=== PATIENT | female | born 1970 | race Caucasian/White ===

== ENCOUNTER 2020-07-18 12:06 | Emergency (ER) | payer OTHER, BC, SELFPAY ==
--- NOTE | ~2020-07-18 | XR_ITS ---
XR foot RT min 3V DATE: 07/18/2020 12:44 INDICATION: Fall downstairs. Injury, pain of right foot TECHNIQUE: 4 views COMPARISON: None FINDINGS: Mild lateral and moderate posterior calcaneal enthesopathy. No fracture or dislocation, periosteal reaction or bone destruction. IMPRESSION: Calcaneal enthesopathy Reviewed, dictated and finalized at location A. IMPRESSION: Calcaneal enthesopathy
--- NOTE | ~2020-07-18 | XR_ITS ---
XR ankle RT min 3V DATE: 07/18/2020 12:43 INDICATION: Fall down stairs. Injury, pain TECHNIQUE: 4 views COMPARISON: None FINDINGS: Plantar and posterior calcaneal enthesopathy. No fracture or dislocation of the ankle or disruption of the ankle mortise. No periosteal reaction or bone destruction. IMPRESSION: Plantar and posterior calcaneal enthesopathy Reviewed, dictated and finalized at location A.
[2020-07-18 12:19] VITALS: BP 147/73; PULSE 88; RESP 16; TEMP 36.7; O2SAT 97
--- NOTE | 2020-07-18 12:20 | ED.GENADULT ---
HPI - General Adult General Chief complaint: Extremity Injury, Lower Stated complaint: rt ankle injury Time Seen by Provider: 07/18/20 12:30 Source: patient Mode of arrival: ambulatory Limitations: no limitations History of Present Illness HPI narrative: 49-year-old female patient presents to the [facility] with complaints of right ankle pain. Patient states that she was going down some steps and twisted her ankle. Patient states that she did not fall because she had her friend in front of her which did catch her fall. Denies taking any Tylenol or ibuprofen prior to arrival. Patient states that she has iced it since the injury. Patient states it does hurt to put any weight on the right ankle. Denies any numbness or tingling to the toes. Related Data Home Medications Medication Instructions Recorded Confirmed No Home Medications 07/18/20 07/18/20 Allergies Allergy/AdvReac Type Severity Reaction Status Date / Time morphine Allergy Intermediate STOMACH Verified 10/26/19 08:14 PAINS aluminum hydroxide Allergy Unknown UNKNOWN Verified 10/26/19 08:14 atropine Allergy Unknown GI COCKTAIL Verified 10/26/19 08:14 Barbiturates Allergy Unknown GI COCKTAIL Verified 10/26/19 08:14 hyoscyamine Allergy Unknown GI COCKTAIL Verified 10/26/19 08:14 Sulfa (Sulfonamide Allergy Unknown HIVES, Verified 10/26/19 08:14 Antibiotics) ITCHING ANTICHOLINERGICS,OTHER Allergy Unknown GI COCKTAIL Uncoded 10/26/19 08:14 Review of Systems Review of Systems: Narrative: CONSTITUTIONAL: Denies fever, chills, or sweats. EYES: Denies visual changes, redness, or discharge. ENT: Denies rhinorrhea, congestion, sore throat, or otalgia. CARDIOVASCULAR: Denies chest pain, palpitations, or edema. RESPIRATORY: Denies cough or dyspnea. GASTROINTESTINAL: Denies abdominal pain, nausea, vomiting, or diarrhea. GENITOURINARY: Denies dysuria or hematuria. SKIN: Denies rash or itching. MUSCULOSKELETAL: Denies back pain, joint pain, or myalgia. Positive right ankle pain from fall NEUROLOGIC: Denies headache, numbness, or weakness. PSYCHIATRIC: Denies anxiety or depression. [facility] Past Medical History Medical History (Updated 07/18/20 @ 12:59 by BIBI Peterson) Anxiety Arthritis Chronic back pain Crohn's disease Degenerative disc disease Depression Diverticulosis Fatty liver Fibroids Frequent headaches GERD (gastroesophageal reflux disease) Gout Irritable bowel Melena Panic disorder Sleep apnea Ulcer Umbilical hernia Surgical History Surgical History H/O cystoscopy H/O lithotripsy H/O rectocele repair H/O tubal ligation Hx of cholecystectomy Family History Family History Sibling Malignant neoplasm of bone Spina bifida Asthma Mother COPD (chronic obstructive pulmonary disease) Hypertension Father Hepatic cirrhosis Social History Social History Smoking status: Never smoker Alcohol intake: current Substance use: never Gender identity (if verbalized by the patient): Female Comments At the time of my signature I agree with nursing past medical history, surgical, social, and family history. There is no relevant family history pertinent to the presenting complaint. Exam Narrative: Exam Narrative: GENERAL: Well-appearing, well-nourished, and in no acute distress. HEAD: Normocephalic, atraumatic. EYES: PERRLA and EOMI. ENT: Nares clear, no rhinorrhea or epistaxis. Mucous membranes moist. NECK: Supple. No lymphadenopathy CHEST: Clear to auscultation. No respiratory distress. HEART: Regular rate and rhythm. No murmur heard. Normal peripheral pulses. ABDOMEN: Soft, nontender, nondistended, normal active bowel sounds. EXTREMITIES: Patient is unable to bear weight and ambulate without pain the right ankle. The R ankle is without obvious asymmetry or deformity
== END 2020-07-18 13:09 | disposition home or self-care (01) ==
PROVIDERS: Emergency Provider Nurse Practitioner Family; PCP Nurse Practitioner Family
DX: S93.401A Sprain of unspecified ligament of right ankle, initial encounter (principal); X50.9XXA Other and unspecified overexertion or strenuous movements or postures, initial encounter; M19.90 Unspecified osteoarthritis, unspecified site; K50.90 Crohn's disease, unspecified, without complications; K76.0 Fatty (change of) liver, not elsewhere classified; K21.9 Gastro-esophageal reflux disease without esophagitis; M10.9 Gout, unspecified
CPT/HCPCS: 73610; 73630; 99213; G0463

== ENCOUNTER 2020-09-11 09:33 | Emergency (ER) | payer BC, SELFPAY ==
[2020-09-11] VITALS (19 sets, daily range): BP systolic 113–157; BP diastolic 56–90; PULSE 82–110; RESP 12–25; TEMP 36.6; O2SAT 92–99
--- NOTE | ~2020-09-11 | XR_ITS ---
EXAMINATION: XR chest 1V portable EXAM DATE: 09/11/2020 10:17 INDICATION: Persistent productive cough 2-3 months. TECHNIQUE: Portable AP frontal chest x-ray was obtained. Comparison is made to prior examination from 10/26/2019. FINDINGS: The lungs are clear. There are no pleural effusions. The cardiomediastinal silhouette is within normal limits. There is no pneumothorax suspected. The bones and soft tissues are unremarkab le. There are cholecystectomy clips. IMPRESSION: No acute cardiopulmonary findings. Reviewed, dictated and finalized at location A. ETING AMBASSADOR
--- NOTE | ~2020-09-11 | CT_ITS ---
EXAMINATION: CTA chest PE protocol EXAM DATE: 09/11/2020 11:29 INDICATION: Elevated dimer, chest pain, shortness of breath. TECHNIQUE: Spiral CTA of the chest (pulmonary arteries) was performed with 100 cc Omnipaque 350 intr avenous contrast injection. Images were acquired during the pulmonary arterial phase. Coronal maxi mum intensity projection 3D-reconstructions were created by the technologist on dedicated workstation . Axial, coronal and sagittal reformatted images were reviewed. The dose-length product (DLP) for t his examination was 415.30 mGy-cm. The exposure was tailored according to patient size (auto mA exp osure control), and iterative reconstruction (ASIR) was used as additional dose reduction technique. Comparison is made to prior examination from 10/26/2019. FINDINGS: Pulmonary arteries are well opacified and without intraluminal filling defects. No thora cic aortic dissection. The lungs are clear. There are no pleural or pericardial effusions. Trach eobronchial tree is patent. There is no mediastinal, hilar or axillary lymphadenopathy. There is no pneumothorax. Heart normal in size. No evidence of coronary arterial calcification. There is hepatic steatosis. Cholecystectomy clips. There is thoracic spondylosis without osteoblastic or osteo lytic lesions identified. IMPRESSION: 1. No acute findings. 2. Hepatic steatosis. Reviewed, dictated and finalized at location A. ILL PRODUCTION WORKER
--- NOTE | 2020-09-11 10:12 | ECG_ITS ---
Measurements Intervals Keo Rate: 101 P: 17 NH: 159 QRS: -5 QRSD: 81 T: 0 QT: 335 QTc: 435 Interpretive Statements SINUS TACHYCARDIA VOLTAGE CRITERIA FOR LVH BORDERLINE T WAVE ABNORMALITY- INFERIOR LEADS BASELINE ARTIFACT- V1, V5 BORDERLINE ECG Electronically Signed On 09-11-2020 10:28:25 DOUBLE ENDING MACHINE OPERATOR by J Luis Zhu D.O.
--- NOTE | 2020-09-11 10:16 | ED.URI ---
HPI - URI/Sore Throat General Chief Complaint: Upper Respiratory Infection Stated Complaint: Cough, Chest Conjestion Time Seen by Provider: 09/11/20 09:51 Source: patient Mode of arrival: ambulatory Limitations: no limitations History of Present Illness HPI Narrative: This is a 49-year-old female that presents to the emergency department for cough x2 months. Reports has been worsening since onset. Associated with some congestion and rhinorrhea. Recently was evaluated at urgent care for this and had a negative Covid swab. Reports she also recently finished ciprofloxacin for urinary tract infection. Reports substernal chest discomfort which has been constant for the last 3 days. Also reports some shortness of breath. Denies fever or lower extremity edema. Related Data Home Medications Medication Instructions Recorded Confirmed No Home Medications 07/18/20 07/18/20 Allergies Allergy/AdvReac Type Severity Reaction Status Date / Time morphine Allergy Intermediate STOMACH Verified 10/26/19 08:14 PAINS aluminum hydroxide Allergy Unknown UNKNOWN Verified 10/26/19 08:14 atropine Allergy Unknown GI COCKTAIL Verified 10/26/19 08:14 Barbiturates Allergy Unknown Other Verified 09/11/20 10:03 hyoscyamine Allergy Unknown Other Verified 09/11/20 10:03 Sulfa (Sulfonamide Allergy Unknown HIVES, Verified 10/26/19 08:14 Antibiotics) ITCHING ANTICHOLINERGICS,OTHER Allergy Unknown Other Uncoded 09/11/20 10:03 Review of Systems Review of Systems: Narrative: CONSTITUTIONAL: Denies fever ENT: Reports rhinorrhea, congestion CARDIOVASCULAR: Reports chest pain. Denies edema. RESPIRATORY: Reports cough and dyspnea. All systems reviewed & are unremarkable except as noted in HPI and below PMFSH Past Medical History Medical History (Updated 09/11/20 @ 12:35 by Connie Santiago PA-C) Anxiety Arthritis Chronic back pain Crohn's disease Degenerative disc disease Depression Diverticulosis Fatty liver Fibroids Frequent headaches GERD (gastroesophageal reflux disease) Gout Irritable bowel Melena Panic disorder Sleep apnea Ulcer Umbilical hernia Surgical History Surgical History H/O cystoscopy H/O lithotripsy H/O rectocele repair H/O tubal ligation Hx of cholecystectomy Family History Family History Sibling Malignant neoplasm of bone Spina bifida Asthma Mother COPD (chronic obstructive pulmonary disease) Hypertension Father Hepatic cirrhosis Social History Social History Smoking status: Never smoker Alcohol intake: current Substance use: never Gender identity (if verbalized by the patient): Female Exam Narrative: Exam Narrative: GENERAL: Well-appearing, well-nourished, and in no acute distress. HEAD: Normocephalic, atraumatic. EYES: EOMI. ENT: Nares clear, no rhinorrhea or epistaxis. Mucous membranes moist. Oropharynx without tonsillar hypertrophy exudate or other lesions. Bilateral TMs pearly reese non-bulging NECK: Supple. No adenopathy or masses. CHEST: Clear to auscultation. No respiratory distress. No wheezes rales or rhonchi HEART: Regular rate and rhythm. No murmur heard. Normal peripheral pulses. EXTREMITIES: Normal range of motion. No edema. SKIN: Warm, dry, no rash. NEURO: No focal deficits. Alert and oriented x3. PSYCH: Normal mood and affect Course Vital Signs Vital signs: Vital Signs Temperature 98 F 09/11/20 09:55 Pulse Rate 110 H 09/11/20 09:55 Respiratory Rate 20 09/11/20 09:55 Blood Pressure 157/87 H 09/11/20 09:55 Pulse Oximetry 96 09/11/20 09:55 Temperature 98 F 09/11/20 09:55 Pulse Rate 104 H 09/11/20 11:02 Respiratory Rate 20 09/11/20 11:02 Blood Pressure 117/70 09/11/20 11:02 Pulse Oximetry 97 09/11/20 11:02 MDM - URI/Sore Throat MDM Narrative Medical decision
[2020-09-11 10:50] LABS: Basophils Absolute Auto 0.1 K/mm3 (0.0-0.1); Basophils Percent Auto 0.6 % (0.2-1.2); Eosinophils Absolute Auto 0.2 K/mm3 (0-0.3); Eosinophils Percent Auto 1.6 % (0-4.4); Hematocrit 38.9 % (37.0-47.0); Hemoglobin 13.3 g/dL (12.0-15.0); Immature Granulocyte Absolute 0.04 K/mm3 (0.00-0.031); Immature Granulocyte Percent A 0.4 % (0-0.5); Lymphocytes Absolute Auto 3.33 K/mm3 (0.9-3.2); Lymphocytes Percent Auto 30.8 % (18.3-44.2); Mean Corpuscular HGB Conc 34.2 g/dl (32-36); Mean Corpuscular Hemoglobin 31.1 pg (26-34); Mean Corpuscular Volume 90.9 fl (80-100); Mean Platelet Volume 9.1 fl (7.4-10.4); Monocytes Percent Auto 9.6 % (2.6-8.5); Neutrophils Absolute Auto 6.2 K/mm3 (1.3-6.7); Platelet Count Result 347 k/mm3 (150-375); Red Blood Count 4.28 M/mm3 (4.2-5.4); White Blood Count 10.8 K/mm3 (4.5-10.0)
[2020-09-11 10:59] LABS: Partial Thromboplastin Time 26.4 SECONDS (22.3-36.8)
[2020-09-11 11:01] LABS: D Dimer 0.52 ug/mL (<0.48)
[2020-09-11 11:11] LABS: Alanine Aminotransferase 44 U/L (4-35); Albumin Level 3.8 g/dL (3.5-5.1); Alkaline Phosphatase 88 U/L (38-126); Anion Gap 6 mmol/L (8-16); Aspartate Amino Transferase 34 U/L (14-36); Bilirubin,Total 0.4 mg/dL (0.2-1.3); Blood Urea Nitrogen 13 mg/dL (7-17); Calcium 8.9 mg/dL (8.4-10.2); Carbon Dioxide 26 mmol/L (22-30); Chloride 104 mmol/L (98-107); Estimated CRCL calculation 84 ml/min; Estimated Glomerular Filt Rate > 60; Glucose 95 mg/dL (65-105); Lipase 46 U/L (23-300); NT Pro B Type Natriuretic Pept 48 PG/ML (5-100); Potassium 3.6 mmol/L (3.4-5.0); Sodium 136 mmol/L (137-145)
[2020-09-11 11:21] LABS: Troponin I < 0.012 ng/mL (0.000-0.034)
[2020-09-11 23:26] LABS: SARS-CoV-2 RNA PCR Negative
== END 2020-09-11 13:35 | disposition home or self-care (01) ==
PROVIDERS: Physician Assistant; Emergency Provider Emergency Medicine; PCP Nurse Practitioner Family
DX: R05 Cough (principal); Z20.828 Contact with and (suspected) exposure to other viral communicable diseases; F41.9 Anxiety disorder, unspecified; M19.90 Unspecified osteoarthritis, unspecified site; M54.5 Low back pain; G89.29 Other chronic pain; F32.9 Major depressive disorder, single episode, unspecified; K57.90 Diverticulosis of intestine, part unspecified, without perforation or abscess without bleeding; K21.9 Gastro-esophageal reflux disease without esophagitis; G47.30 Sleep apnea, unspecified; R07.9 Chest pain, unspecified
CPT/HCPCS: 36415; 71045; 71275; 80053; 83690; 83880; 84484; 85025; 85380; 85610; 85730; 87635; 93005; 99284; C9803; Q9967; U0003

== ENCOUNTER 2020-12-18 14:49 | Emergency (ER) | payer BC, SELFPAY ==
--- NOTE | ~2020-12-18 | XR_ITS ---
EXAMINATION: XR abdomen/kub 1V EXAM DATE: 12/18/2020 16:02 INDICATION: Right-sided pain, kidney stone. TECHNIQUE: Frontal projection(s) of the abdomen for interpretation. Comparison is made to prior exami nation from 05/26/2019. FINDINGS: Multiple left calyceal stones identified. There is a new linear density projecting over the right L3 transverse process, could be a ureteral stone given the history provided. This measures abo ut 2 x 8 mm. Possible smaller right nephrolithiasis, although both renal contours are obscured by bow el gas. Left pelvic calcifications, phleboliths. Moderate amount of colonic stool and gas. No small b owel dilation. Lung bases unremarkable. There are mild bony degenerative changes. There are cholecyst ectomy clips. IMPRESSION: 1. New linear density could be a proximal ureteral stone given history provided. 2. Bilateral nephrolithiasis. Reviewed, dictated and finalized at location B. CTOR OF LOGISTICS IMPRESSION: 1. New linear density could be a proximal ureteral stone given history provide d. 2. Bilateral nephrolithiasis.
[2020-12-18 14:57] VITALS: BP 164/74; PULSE 87; RESP 18; TEMP 36.4; O2SAT 100
[2020-12-18 15:10] LABS: Basophils Percent Auto 0.3 % (0.2-1.2); Eosinophils Absolute Auto 0.1 K/mm3 (0-0.3); Eosinophils Percent Auto 1.4 % (0-4.4); Hematocrit 40.7 % (37.0-47.0); Hemoglobin 13.6 g/dL (12.0-15.0); Immature Granulocyte Absolute 0.03 K/mm3 (0.00-0.031); Immature Granulocyte Percent A 0.3 % (0-0.5); Lymphocytes Absolute Auto 3.59 K/mm3 (0.9-3.2); Lymphocytes Percent Auto 39.5 % (18.3-44.2); Mean Corpuscular HGB Conc 33.4 g/dl (32-36); Mean Corpuscular Hemoglobin 31.6 pg (26-34); Mean Corpuscular Volume 94.7 fl (80-100); Monocytes Absolute Auto 0.9 K/mm3 (0.1-0.6); Monocytes Percent Auto 9.8 % (2.6-8.5); Neutrophils Absolute Auto 4.4 K/mm3 (1.3-6.7); Neutrophils Percent Auto 48.7 % (45.5-73.1); Platelet Count Result 374 k/mm3 (150-375); Red Cell Distribution Width 12.8 % (11.5-14.5); White Blood Count 9.1 K/mm3 (4.5-10.0)
[2020-12-18 15:13] LABS: Add Urine Microscopic? YES; Appearance Urine Clear (Clear); Bacteria Urine Trace /hpf; Bilirubin Urine Negative (Negative); Blood Urine 2+ (Negative); Color Urine Straw (Yellow); Glucose Urine UA Negative (Negative); Ketones Urine Negative (Negative); Leukocyte Esterase Ur Trace LEU/UL (Negative); Mucus Urine Rare /lpf; Nitrate Urine Negative (Negative); Protein Urine 1+ mg/dL (Negative); RBC Urine 51-75 /hpf (0-2); Specific Grav Ur 1.011 (1.001-1.035); Squamous Epithelial Cell Urine Few /hpf (Few); Transitional Epi Cells Urine Rare /hpf (None Seen); Urobilinogen Urine Negative mg/dL (<2.0); WBC Urine 0-3 /hpf
[2020-12-18 15:22] LABS: Anion Gap 7 mmol/L (8-16); Blood Urea Nitrogen 10 mg/dL (7-17); Calcium 8.6 mg/dL (8.4-10.2); Carbon Dioxide 30 mmol/L (22-30); Chloride 103 mmol/L (98-107); Estimated CRCL calculation 75 ml/min; Estimated Glomerular Filt Rate > 60; Glucose 118 mg/dL (65-105); Potassium 3.5 mmol/L (3.4-5.0); Sodium 140 mmol/L (137-145)
--- NOTE | 2020-12-18 15:25 | ED.ABDPAIN ---
HPI - Abdominal Pain General Chief Complaint: Abdominal Pain Stated Complaint: deedee stone, onel flank pain Time Seen by Provider: 12/18/20 14:54 Source: patient Mode of arrival: ambulatory Limitations: no limitations History of Present Illness HPI narrative: Patient is a 50-year-old female complaining of right flank pain, 5 out of 10, sharp, nonradiating started yesterday. Patient states that she went to an urgent care earlier today, had a CT scan done, was told she had a 7 mm stone and that she needs to go the emergency room. Patient states that she has a history of kidney stones and she sees Dr. Soria, urology. Patient states that she usually passes her stones and does not know why the urgent care told her to come to the emergency room. Related Data Allergies Allergy/AdvReac Type Severity Reaction Status Date / Time morphine Allergy Intermediate STOMACH Verified 10/26/19 08:14 PAINS aluminum hydroxide Allergy Unknown UNKNOWN Verified 10/26/19 08:14 atropine Allergy Unknown GI COCKTAIL Verified 10/26/19 08:14 Barbiturates Allergy Unknown Other Verified 09/11/20 10:03 hyoscyamine Allergy Unknown Other Verified 09/11/20 10:03 Sulfa (Sulfonamide Allergy Unknown HIVES, Verified 10/26/19 08:14 Antibiotics) ITCHING ANTICHOLINERGICS,OTHER Allergy Unknown Other Uncoded 09/11/20 10:03 Review of Systems Review of Systems: All systems reviewed & are unremarkable except as noted in HPI and below Constitutional: Constitutional: Denies body ache(s), Denies chills, Denies excessive sweating, Denies fatigue, Denies fever(s), Denies headache(s), Denies lethargy, Denies malaise, Denies weakness and Denies weight loss Eyes: Eyes: Denies blurry vision, Denies change in vision and Denies loss of vision ENT: Denies dizziness, Denies ear discharge, Denies headache(s), Denies lip swelling, Denies epistaxis, Denies nasal congestion, Denies neck pain, Denies throat swelling and Denies tongue swelling Cardiovascular: Cardiovascular: Denies chest pain, Denies chest pain at rest, Denies chest pain with activity, Denies diaphoresis, Denies rapid heart rate, Denies edema, Denies irregular heart rhythm, Denies lightheadedness, Denies palpitations, Denies dyspnea and Denies dyspnea on exertion Respiratory: Respiratory: Denies chest congestion, Denies cough, Denies hemoptysis, Denies dyspnea and Denies dyspnea on exertion Gastrointestinal: Gastrointestinal: Denies abdominal pain, Denies melena, Denies hematochezia, Denies diarrhea, Denies nausea, Denies vomiting and Denies hematemesis Musculoskeletal: Musculoskeletal: Denies abnormal gait, Denies deformity, Denies joint swelling, Denies limited range of motion, Denies neck pain and Denies numbness Neurologic: Denies Abnormal speech present, Denies abnormal gait, Denies confusion, Denies dizziness, Denies headache(s), Denies focal weakness, Denies loss of vision, Denies numbness, Denies Other visual disturbances, Denies Sensory deficit (Neuro) and Denies weakness Psychiatric: Psychiatric: Denies confusion, Denies depression, Denies auditory hallucinations, Denies homicidal ideation and Denies suicidal ideation Endocrine: Endocrine: Denies cold intolerance, Denies excessive sweating, Denies fatigue, Denies heat intolerance and Denies palpitations Hematologic/Lymphatic: Hematologic/Lymphatic: Denies easy bleeding and Denies easy bruising Allergic/Immunologic: Allergic/Immunologic: Denies lip swelling, Denies throat swelling and Denies tongue swelling PMFSH Past Medical History Medical History (Updated 12/18/20 @ 17:15 by Gael Palacio MD) Anxiety Arthritis Chronic back pain Crohn's disease Degenerative disc disease Depression Diverticulosis Fatty liver Fibroids Frequent headaches GERD (gastroesophageal reflux disease) Gout Irritable bowel Melena Panic disorder Sleep apnea Ulcer Umbilical hernia Surgical History Surgical History H/O cy
[2020-12-18] MEDS: SODIUM CHLORIDE 0.9% IV 1,000 ML 999 ML IV CONT (15:26)
[2020-12-18] MEDS: TAMSULOSIN HCL 0.4 MG CAPSULE PO (15:26)
[2020-12-18 17:31] VITALS: BP 158/65; PULSE 82; RESP 17; O2SAT 100
== END 2020-12-18 17:33 | disposition home or self-care (01) ==
PROVIDERS: Emergency Medicine; Emergency Provider Emergency Medicine; PCP Nurse Practitioner Adult Health
DX: N20.1 Calculus of ureter (principal); N23 Unspecified renal colic; F41.9 Anxiety disorder, unspecified; M19.90 Unspecified osteoarthritis, unspecified site; F32.9 Major depressive disorder, single episode, unspecified; K21.9 Gastro-esophageal reflux disease without esophagitis
CPT/HCPCS: 36415; 74018; 80048; 81001; 81025; 85025; 96360; 99283; A9270; J7030

== ENCOUNTER → 2020-12-26 00:19 | Outpatient (CLI) | payer BC, SELFPAY ==
[2020-12-26 17:02] LABS: SARS-CoV-2 RNA PCR Negative
== END ==
PROVIDERS: PCP Nurse Practitioner Adult Health; Visit Provider Urology
DX: Z01.812 Encounter for preprocedural laboratory examination (principal); Z20.822 Contact with and (suspected) exposure to COVID-19
CPT/HCPCS: C9803; U0003; U0005

== ENCOUNTER 2020-12-26 10:08 | Outpatient (CLI) | payer BC, SELFPAY ==
[2020-12-26 10:53] LABS: INR 0.9; Prothrombin Time 12.5 Seconds (11.1-14.7)
[2020-12-26 11:12] LABS: Partial Thromboplastin Time 19.6 SECONDS (22.3-36.8)
== END 2020-12-26 10:09 | disposition home or self-care (01) ==
LOC: ANHSURGERY 10:10
PROVIDERS: PCP Nurse Practitioner Adult Health; Visit Provider Urology
DX: N20.1 Calculus of ureter (principal); Z01.818 Encounter for other preprocedural examination
CPT/HCPCS: 36415; 85610; 85730

== ENCOUNTER 2020-12-27 01:13 | Day surgery (SDC) | payer BC, SELFPAY ==
[2020-12-25 15:33] VITALS: BMI 32.8
[2020-12-27] VITALS (12 sets, daily range): BP systolic 115–156; BP diastolic 60–86; PULSE 64–94; RESP 14–20; TEMP 36.8–36.9; O2SAT 97–100
--- NOTE | ~2020-12-27 | XR_ITS ---
EXAMINATION: XR abdomen/kub 1V EXAM DATE: 12/27/2020 10:34 INDICATION: For lithotripsy. TECHNIQUE: Frontal projection of the upper abdomen, frontal projection lower abdomen/pelvis for inter pretation. Comparison is made to prior examination from 12/18/2018. FINDINGS: Previously seen linear density projects between the right 3rd and 4th transverse processes, could be a ureteral stone with 1 or 2 cm of distal migration compared to prior x-ray. Bilateral neph rolithiasis also identified. There are cholecystectomy clips. Only small amount of colonic stool. Calcifications in the pelvis are believed to be phleboliths. There is no organomegaly. There is a nonobstructive bowel gas pattern. T here are mild bony degenerative changes. IMPRESSION: 1. Linear density could be right proximal ureteral stone. 2. Bilateral nephrolithiasis. Reviewed, dictated and finalized at location A.
--- NOTE | 2020-12-27 08:19 | WPDHPUPDATE1 ---
History and Physical Update Update Date/Time: 12/27/20 08:19 History and Physical has been reviewed, including an updated exam of the patient. There are NO changes in the patient's condition. Risks, benefits, and alternatives have been discussed and questions answered. Patient agrees to proceed with procedure.
[2020-12-27] MEDS: LACTATED RINGERS 1,000 ML 30 ML IV CONT (11:08)
--- NOTE | 2020-12-27 11:17 | WPDANESEPPF ---
Anes - Initial Pre Proc Eval Procedure: Operation Date: 12/27/20 12:30 Proposed Procedures p Right Ureteral Extracorporeal Shock Wave Lithotripsy - Vic Richards MD Date/Time: 12/27/20 11:17 Surgeon: Vic Richards MD Pre Op Diagnosis: Right Ureteral Stone Patient Data Age: 50 Gender: F Height: 5 ft 3 in Weight: 81.15 kg Allergies Allergy/AdvReac Type Severity Reaction Status Date / Time morphine Allergy Intermediate STOMACH Verified 12/25/20 15:28 PAINS aluminum hydroxide Allergy Unknown Hives Verified 12/25/20 15:28 atropine Allergy Unknown Hives Verified 12/25/20 15:28 Barbiturates Allergy Unknown Hives Verified 12/25/20 15:28 hyoscyamine Allergy Unknown Hives Verified 12/25/20 15:28 Sulfa (Sulfonamide Allergy Unknown HIVES, Verified 12/25/20 15:28 Antibiotics) ITCHING ANTICHOLINERGICS,OTHER Allergy Unknown Hives Uncoded 12/25/20 15:28 Home Medications Medication Instructions Recorded Confirmed Type hydrocodone-acetaminophen 1 tablet PO Q8H PRN 12/25/20 12/25/20 History lactobacillus combination no.4 3,000 mmu cells PO DAILY 12/25/20 12/25/20 History [Probiotic] loratadine 10 mg PO HS 12/25/20 12/25/20 History tamsulosin [Flomax] 0.4 mg PO HS 12/25/20 12/25/20 History Patient hx anesthesia problems: none Family hx anesthesia problems: none PMFSH Past Medical History Medical History (Updated 12/19/20 @ 00:00 by Background Daemon) Anxiety Arthritis Chronic back pain Crohn's disease Degenerative disc disease Depression Diverticulosis Fatty liver Fibroids Frequent headaches GERD (gastroesophageal reflux disease) Gout Irritable bowel Melena Panic disorder Sleep apnea Ulcer Umbilical hernia Surgical History Surgical History H/O cystoscopy H/O lithotripsy H/O rectocele repair H/O tubal ligation Hx of cholecystectomy Family History Family History Sibling Malignant neoplasm of bone Spina bifida Asthma Mother COPD (chronic obstructive pulmonary disease) Hypertension Father Hepatic cirrhosis Social History Social History Smoking status: Never smoker Second hand tobacco smoke exposure: No Alcohol intake: current Alcohol use details: STATES VERY RARELY COUPLE TIMES A YEAR Substance use: never Substance use type: does not use Living arrangements: with family Gender identity (if verbalized by the patient): Female Spiritual care concerns: No Anes - Eval Final PreProcedure Day of Procedure 12/27/20 11:17 Patient weight: obese Heart: regular rate and rhythm Airway: Mallampati scale class II Neurological: alert and oriented Last oral intake: >/= 8 hours ASA classification: III Anesthetic plan: proceed Anesthesia type and monitoring: general LMA and standard monitoring Informed Consent: The patient's anesthetic plan and its attendant risks and benefits were discussed with the patient/family/POA. Questions were solicited and answers provided to the satisfaction of the patient/family/POA.
[2020-12-27] MEDS: ceFAZolin 2 GM/D5W 50 ML 2 GM/50 ML BAG IVPB (13:35)
--- NOTE | 2020-12-27 13:57 | PM.PROC ---
Procedure Note - Detailed Date of procedure: 12/27/20 Pre-op diagnosis: Right Ureteral Stone Post-op diagnosis: same Procedure performed: Right ESWL Description of procedure: The patient was brought to the operative suite where she was placed in the supine position on the Dornier lithotripsy table. The focal point of the lithotripter was placed at a 7x3mm right mid-ureteral calculus. A total of 3000 shocks were delivered at a power setting of 4. There appeared to be good fragmentation of the stone. The patient tolerated the procedure well and was taken to the recovery room in good condition. Anesthesia: GLMA Surgeon: Vic Richards MD Estimated blood loss (mL): 0 Drains: No Packing: No Pathology: none sent Complications: No immediate complications Condition: stable Disposition: PACU
[2020-12-27] MEDS: fentaNYL CITRATE INJ (*CRX) 100 MCG/2 ML VIAL 25 MCG IV PUSH ×3 (14:54→17:20)
--- NOTE | 2020-12-27 15:26 | SUR.PHASEII ---
1526- Call to Dr. Menendez patient complaining of right flank pain rating at an 8/[address] Menendez can order oxycodone 5MG once PO.
[2020-12-27] MEDS: ONDANSETRON INJ 4 MG/2 ML VIAL IV PUSH (15:41)
[2020-12-27] MEDS: oxyCODONE HCL (*CRX) 5 MG TAB IR PO (16:13)
--- NOTE | 2020-12-27 16:37 | SUR.PHASEII ---
2095- Call to Dr. Soriano patient had episode of emesis. Obtained orders for 4MG decadron IVP and scopolamine patch.
[2020-12-27] MEDS: SCOPOLAMINE 1.5 MG PATCH TRANSDERM (16:49)
[2020-12-27] MEDS: DEXAMETHASONE SOD PHOS INJ 4 MG/ML VIAL IV PUSH (16:49)
--- NOTE | 2020-12-27 17:35 | SUR.PHASEII ---
1735- Patient voicing concern with home medication [place] prescribed and requesting to take Ibuprofen to assist with her home pain medication regimen. Patient requesting this RN call to Dr. Richadrs to notify him of her pain and her request for Ibuprofen. 173- Call to Dr. Richards and notified him of patient's pain to right flank and abdomen. Made Dr. Richards aware that patient requesting pain control with Ibuprofen versus prescribed [place] and has been given 25MCG fentanyl IVP but patient declining additional doses with sensitivity to medicines. Per Dr. Richards patient can alternate Ibuprofen and Tylenol at home and can have a dose of 1,000MG IV Tylenol once if she would like. Made Dr. Richards aware patient is very sensitive to pain medication and has allergies to medications including Tramadol which he did offer to prescribe to help minimize patient's pain prior to discharge. 1740- Patient updated labor contract analyst to Dr. Richards and offered 1,000MG IV Tylenol at this time but declined. Instructed patient she can alternate Ibuprofen and Tylenol at home for pain control. 1800- Patient with nausea after changing into her clothing from home. Offered to call anesthesia to obtain additional orders to help assist with the nausea. Patient declining medications.
== END 2020-12-27 18:07 | disposition home or self-care (01) ==
PROVIDERS: PCP Nurse Practitioner Adult Health; Visit Provider Urology
PROC: (CPT 50590; principal; 2020-12-27 12:30)
DX: N20.1 Calculus of ureter (principal); F41.9 Anxiety disorder, unspecified; M19.90 Unspecified osteoarthritis, unspecified site; K50.90 Crohn's disease, unspecified, without complications; F41.8 Other specified anxiety disorders; K76.0 Fatty (change of) liver, not elsewhere classified; K21.9 Gastro-esophageal reflux disease without esophagitis; F41.0 Panic disorder [episodic paroxysmal anxiety]; G47.30 Sleep apnea, unspecified; E66.9 Obesity, unspecified; Z68.31 Body mass index [BMI] 31.0-31.9, adult
CPT/HCPCS: 50590; 36415; 74018; 85610; 85730; A9270; C9803; J0690; J1100; J2250; J2405; J2704; J3010; J7120; U0003; U0005

== ENCOUNTER 2021-01-02 16:13 | Outpatient (CLI) | payer BC, SELFPAY ==
--- NOTE | ~2021-01-02 | XR_ITS ---
XR abdomen/kub 1V DATE: 01/02/2021 16:31 INDICATION: Right ureteral stone TECHNIQUE: AP projection, 2 views COMPARISON: 12/27/2020 KUB FINDINGS: Vertically oriented linear density overlying the right ureter at the L3 level on 12/27/2020 KUB is not evident on the current examination. Bilateral left greater than right nephrolithiasis is noted. Surgical clips, right upper quadrant, consistent with cholecystectomy. The psoas shadows are intact. No visceromegaly is evident. Multiple left calcified pelvic phleboliths No bowel obstruction. There is a moderately prominent of fecal material in the colon. The lung bases appear clear. Normal heart size. IMPRESSION: Bilateral nephrolithiasis Status post cholecystectomy Reviewed, dictated and finalized at Location A. Reviewed, dictated and finalized at location B.
== END 2021-01-02 16:14 | disposition home or self-care (01) ==
PROVIDERS: PCP Nurse Practitioner Adult Health; Visit Provider Nurse Practitioner Adult Health
DX: N20.0 Calculus of kidney (principal); Z90.49 Acquired absence of other specified parts of digestive tract
CPT/HCPCS: 74018

== ENCOUNTER → 2021-04-23 12:35 | Outpatient (CLI) | payer BC, SELFPAY ==
--- NOTE | ~2021-04-23 | MM_ITS ---
EXAMINATION: MM screening [facility] BI w [place] HISTORY: Screening mammogram TECHNIQUE: Craniocaudal and mediolateral oblique 3-D tomosynthesis images were obtained and synthetic 2-D images were generated. CAD analysis was submitted and interpreted. COMPARISON: 11/02/2019, 07/12/2019, 06/08/2017 BREAST PARENCHYMAL COMPOSITION: There are scattered areas of fibroglandular density. FINDINGS: There is no evidence of suspicious mass, calcification, or architectural distortion to sugg est malignancy in either breast. There has been no suspicious interval change. IMPRESSION: 1. No mammographic evidence of malignancy. 2. Recommend routine screening mammography in one year. BI-RADS Category 1: Negative Reviewed, dictated and finalized at location A.
== END ==
PROVIDERS: PCP Nurse Practitioner Adult Health; Visit Provider Obstetrics & Gynecology
DX: Z12.31 Encounter for screening mammogram for malignant neoplasm of breast (principal)
CPT/HCPCS: 77063; 77067

== ENCOUNTER 2021-07-01 10:07 | Outpatient (CLI) | payer BC, SELFPAY ==
--- NOTE | 2021-07-01 16:25 | WPDPFTINT ---
PFT Procedure Performed PFT Procedure Performed Plethysmography (Lung Vol) Diffusing Cap (DLCO) Flow Vol Loop Spirometry w/o Bronchodil PFT Interpretation This is a pulmonary function test with spirometry, plethysmography and diffusing capacity. The test was performed and results interpreted in accordance with the 2019 and 2005 ATS/ERS Task Force guidelines respectively using the Global Lung Function Initiative-2012 reference equations. Patient demonstrated good effort and cooperation. Reproducibility criteria were met. The quality of the spirometry maneuver was Grade A. Findings: Spirometry: The contour of the inspiratory and expiratory flow tracing are normal. The FVC is 3.40 L, 103% predicted. The FEV1 is 2.51 L, 95% predicted. The FEV1: FVC ratio 74%. Plethysmography: The total lung capacity is 4.83 L, 99% predicted. The functional residual capacity is 2.18 L, 80% predicted. The residual volume is 1.40 L, 80% predicted. Diffusing capacity: The absolute diffusion capacity is 20.9, 94% predicted. The diffusing capacity corrected for alveolar volume is 4.64, 100% predicted. Impression: The spirometry is normal without evidence of an obstructive abnormality. The lung volumes are normal. The diffusing capacity is normal. There are no prior studies for comparison
== END 2021-07-01 10:08 | disposition home or self-care (01) ==
PROVIDERS: PCP Nurse Practitioner Adult Health; Visit Provider Nurse Practitioner Adult Health
DX: R05 Cough (principal)
CPT/HCPCS: 94375; 94726; 94729

== ENCOUNTER → 2022-04-27 14:45 | Outpatient (CLI) | payer BC, SELFPAY ==
--- NOTE | ~2022-04-27 | XR_ITS ---
EXAM: XR abdomen/kub 1V DATE: 04/27/2022 15:09 HISTORY: Flank pain, acute . COMPARISON: 01/02/2021. CT abdomen and pelvis 05/26/2019. FINDINGS: Cholecystectomy clips. Clear lung bases. Normal bowel gas pattern. No organomegaly. Bilater al renal calculi, grossly stable on the left, slightly increased calcification burden on the right. 3 x 7 mm calcification projects over the left inferior bladder and may represent artifact, new bladder stone, or a recently displaced nephrolith without a clear donor site. Pelvic phleboliths are otherwi se grossly stable. Mild degenerative change in the lumbar spine and bilateral hips. IMPRESSION: Bilateral nephrolithiasis. New calcification overlying the bladder, described above. Reviewed, dictated and finalized at location K.
== END ==
PROVIDERS: PCP Nurse Practitioner Adult Health; Visit Provider Nurse Practitioner Adult Health
DX: R10.9 Unspecified abdominal pain (principal); N20.0 Calculus of kidney
CPT/HCPCS: 74018

== ENCOUNTER → 2022-04-27 14:48 | Outpatient (CLI) | payer BC, SELFPAY ==
--- NOTE | ~2022-04-27 | MM_ITS ---
EXAMINATION: MM screening [facility] BI w [place] HISTORY: Screening TECHNIQUE: Craniocaudal and mediolateral oblique 3-D tomosynthesis images were obtained and synthetic 2-D images were generated. CAD analysis was submitted and interpreted. COMPARISON: Comparison to multiple prior studies sequentially, with oldest reviewed study dated 04/19. BREAST PARENCHYMAL COMPOSITION: There are scattered areas of fibroglandular density. FINDINGS: There is a new small mass in the upper outer quadrant of the right breast anteriorly. The l eft breast is stable without evidence for malignancy. IMPRESSION: 1. New small right breast mass, upper outer quadrant anteriorly. 2. Additional mammographic views and possible breast ultrasound are recommended. BI-RADS Category 0: Incomplete: Needs additional imaging evaluation. Reviewed, dictated and finalized at location A. IMPRESSION: 1. New small right breast mass, upper outer quadrant anteriorly. 2. Additional mammographic views and possible breast ultrasound are recommended . BI-RADS Category 0: Incomplete: Needs additional imaging evaluation.
== END ==
PROVIDERS: PCP Nurse Practitioner Adult Health; Visit Provider Nurse Practitioner
DX: Z12.31 Encounter for screening mammogram for malignant neoplasm of breast (principal); R92.8 Other abnormal and inconclusive findings on diagnostic imaging of breast
CPT/HCPCS: 77063; 77067

== ENCOUNTER → 2022-05-07 08:49 | Outpatient (CLI) | payer BC, SELFPAY ==
--- NOTE | ~2022-05-07 | MM_ITS ---
EXAMINATION: MM diagnostic [facility] RT w [place] HISTORY: New small right breast mass reported in upper outer quadrant anteriorly on 04/27/2022 screeni ng mammogram TECHNIQUE: Additional 3-D tomosynthesis images of the right breast were performed and synthetic 2-D i mages were generated. Rolled medial and rolled lateral craniocaudal views. CAD analysis was submitted and interpreted. COMPARISON: 04/27/2022 bilateral screening mammogram FINDINGS: The small mass suggested on 04/27/2022 in the anterior aspect of the upper outer quadrant of the right breast is not confirmed on any of these supplemental views. This has resolved or may have been a summation shadow of overlapping structures. IMPRESSION: 1. No mammographic evidence of malignancy 2. Routine annual mammographic screening is recommended BI-RADS Category 1: Negative Reviewed, dictated and finalized at location A.
== END ==
PROVIDERS: PCP Nurse Practitioner Adult Health; Visit Provider Obstetrics & Gynecology Gynecology
DX: R92.8 Other abnormal and inconclusive findings on diagnostic imaging of breast (principal)
CPT/HCPCS: 77061; 77065; G0279

== ENCOUNTER 2022-11-30 12:15 | Outpatient (CLI) | payer BC, SELFPAY ==
--- NOTE | ~2022-11-30 | XR_ITS ---
Supine and upright views of the abdomen Clinical history: Renal stones COMPARISON: 04/27/2022 Findings: Bowel gas pattern is nonspecific. No evidence for obstruction or free air. Multiple bilater al renal stones are present, measuring up to 1 cm in size the left lower pole, with largest right sto ne measuring approximately 3 mm. Presumed pelvic phleboliths noted. Cholecystectomy clips are present . Osseous structures are intact. Impression: Bilateral nephrolithiasis, as detailed above. Presumed pelvic phleboliths. Distal ureteral stone difficult to completely exclude, though the pelvic calcifications appears essentially stable since 04/27/2022. Reviewed, dictated and finalized at location . MANAGER Impression: Bilateral nephrolithiasis, as detailed above. Presumed pelvic phleboliths. Distal ureteral stone difficult to completely excl ude, though the pelvic calcifications appears essentially stable since 2.
== END 2022-11-30 12:16 | disposition home or self-care (01) ==
LOC: ANHIMG 12:20
PROVIDERS: PCP Family Medicine; Visit Provider Urology
DX: N20.0 Calculus of kidney (principal)
CPT/HCPCS: 74018

== ENCOUNTER → 2022-12-01 12:51 | Outpatient (CLI) | payer BC, SELFPAY ==
--- NOTE | ~2022-12-01 | CT_ITS ---
Non-contrast CT scan of the Abdomen and Pelvis Clinical indication: Bilateral renal stones Technique: 5 mm axial scans were obtained through the abdomen and pelvis without intravenous or oral contrast. Dose reduction technique was used on this scan by utilizing automated exposure control and iterative reconstruction technique. The dose-length product (DLP) was 626.24 mGy-cm. COMPARISON: 05/26/2019 Findings: Images through the lung bases reveal no abnormalities. Multiple bilateral nonobstructing renal stones are present. Largest on the left kidney is the lower p ole, measuring 1 cm in diameter. Largest right-sided stone is also the lower pole, measuring 4-5 mm. No ureteral stone or hydronephrosis on either side. The liver, spleen, pancreas, and adrenals appear normal. Cholecystectomy clips are noted. There is no aortic aneurysm. There is no evidence of bowel obstruction. Images through the pelvis were performed. There is no evidence of ascites or lymphadenopathy. Urinary bladder unremarkable. No adnexal mass seen. No ascites. Impression: Bilateral nonobstructing nephrolithiasis, similar to prior exam. No ureteral stone or hydronephrosis. Reviewed, dictated and finalized at [facility]. STANT PRODUCT MANAGER Impression: Bilateral nonobstructing nephrolithiasis, similar to prior exam. No ureteral st one or hydronephrosis.
== END ==
PROVIDERS: PCP Family Medicine; Visit Provider Urology
DX: N20.0 Calculus of kidney (principal)
CPT/HCPCS: 74176

== ENCOUNTER → 2023-04-15 11:47 | Outpatient (CLI) | payer BC, SELFPAY ==
--- NOTE | ~2023-04-15 | US_ITS ---
Pelvic ultrasound. Clinical History: Abnormal uterine bleeding Technique: Realtime transabdominal and transvaginal scanning of the pelvis was performed. Color flow Doppler and Doppler spectral analysis were performed. Findings: The uterus is anteverted. The endometrial stripe has a thickness of 6 mm. No focal mass is identified. Neither ovary seen. No adnexal mass seen. There is no evidence of free fluid in the cul de sac. Impression: No significant abnormality evident. Reviewed, dictated and finalized at location . Impression: No significant abnormality evident.
== END ==
PROVIDERS: PCP Family Medicine; Visit Provider Obstetrics & Gynecology
DX: N93.9 Abnormal uterine and vaginal bleeding, unspecified (principal)
CPT/HCPCS: 76830; 76856

== ENCOUNTER → 2023-07-05 16:07 | Outpatient (CLI) | payer BC, SELFPAY ==
--- NOTE | ~2023-07-05 | MM_ITS ---
EXAMINATION: MM screening [facility] BI w [place] HISTORY: Screening mammogram TECHNIQUE: Craniocaudal and mediolateral oblique 3-D tomosynthesis images were obtained and synthetic 2-D images were generated. CAD analysis was submitted and interpreted. COMPARISON: 05/07/2022 diagnostic right mammogram 04/27/2022, 04/23/2021 bilateral screening mammogram examinations BREAST PARENCHYMAL COMPOSITION: FINDINGS: Right breast: There is an approximately 4 mm asymmetric opacity anteriorly in the upper outer quadran t of the right breast. Diagnostic right mammogram is recommended, with ultrasound if required. Left breast: There is no evidence of suspicious mass, calcification, or architectural distortion to s uggest malignancy in the left breast. There has been no suspicious interval change. IMPRESSION: 1. Approximately 4 mm asymmetric opacity anteriorly in the upper outer right breast 2. Diagnostic right mammogram is recommended, with ultrasound if required BI-RADS Category 0: Incomplete: Needs additional imaging evaluation. Reviewed, dictated and finalized at location A. IMPRESSION: 1. Approximately 4 mm asymmetric opacity anteriorly in the upper outer right br east 2. Diagnostic right mammogram is recommended, with ultrasound if required BI-RADS Category 0: Incomplete: Needs additional imaging evaluation.
== END ==
PROVIDERS: PCP Obstetrics & Gynecology; Visit Provider Obstetrics & Gynecology
DX: Z12.31 Encounter for screening mammogram for malignant neoplasm of breast (principal); R92.8 Other abnormal and inconclusive findings on diagnostic imaging of breast
CPT/HCPCS: 77063; 77067

== ENCOUNTER → 2023-08-16 14:17 | Outpatient (CLI) | payer BC, SELFPAY ==
--- NOTE | ~2023-08-16 | MMUS_ITS ---
EXAMINATION: MM diagnostic [facility] RT w [place], US breast RT limited HISTORY: Follow-up right breast asymmetry TECHNIQUE: Additional 3-D tomosynthesis images of the right breast were performed and synthetic 2-D i mages were generated. CAD analysis was submitted and interpreted. High resolution Limited right breas t ultrasound was performed. COMPARISON: Comparison to multiple prior studies sequentially, with oldest reviewed study dated 11/2018. BREAST PARENCHYMAL COMPOSITION: BREAST PARENCHYMAL COMPOSITION: There are scattered areas of fibroglandular density. FINDINGS: MAMMOGRAPHIC FINDINGS: There is a small mass in the upper outer quadrant of the right breast anteriorly which is partially o bscured by fibroglandular tissue. There are no suspicious calcifications or architectural distortion. ULTRASOUND: Limited right breast ultrasound: At 12:00, 1 cm from the nipple, there is a 3 mm cyst corresponding t o the no suspicious masses to suggest malignancy. IMPRESSION: 1. No evidence for malignancy in the right breast. Benign finding. 2. . Routine yearly screening mammogram and regular clinical breast examination are recommended. BI-RADS Category 2: Benign finding(s). Reviewed, dictated and finalized at location A. DESIGN ENGINEER IMPRESSION: 1. No evidence for malignancy in the right breast. Benign finding. 2. . Routine yearly screening mammogram and regular clinical breast examination are recommended. BI-RADS Category 2: Benign finding(s).
== END ==
PROVIDERS: PCP Nurse Practitioner; Visit Provider Obstetrics & Gynecology
DX: R92.8 Other abnormal and inconclusive findings on diagnostic imaging of breast (principal)
CPT/HCPCS: 76642; 77061; 77065; G0279

== ENCOUNTER 2023-09-10 14:56 | Outpatient (CLI) | payer BC, SELFPAY ==
--- NOTE | ~2023-09-10 | US_ITS ---
EXAMINATION: US venous doppler [facility] DATE: 09/10/2023 15:32 INDICATION: Left lower limb pain. TECHNIQUE: Grayscale ultrasound images without and with compression and Doppler ultrasound images of the left lower extremity veins were obtained. COMPARISON: None. FINDINGS: The visualized portions of left common femoral vein, profunda (deep) femoral vein, femoral vein, popl iteal vein, peroneal veins, posterior tibial veins, and greater saphenous vein outflow are patent. IMPRESSION: 1. No deep venous thrombosis. Reviewed, dictated and finalized at location A. MOBILE DEVELOPER
== END 2023-09-10 14:57 | disposition home or self-care (01) ==
PROVIDERS: PCP Nurse Practitioner; Visit Provider Nurse Practitioner
DX: M79.662 Pain in left lower leg (principal)
CPT/HCPCS: 93971

== ENCOUNTER 2023-10-01 02:05 | Day surgery (SDC) | payer BC, SELFPAY ==
[2023-09-15 09:01] VITALS: BMI 29.8
--- NOTE | 2023-09-29 08:36 | SUR.PREOP ---
Patient called regarding upcoming procedure. Reviewed preop instructions, appointment times, and procedure prep.
--- NOTE | 2023-09-30 09:12 | WPDANESEPPF ---
Anes - Initial Pre Proc Eval Procedure: Operation Date: 10/01/23 12:30 Proposed Procedures p Colonoscopy - Drew Anderson MD Date/Time: 09/30/23 09:12 Surgeon: Drew Anderson MD Pre Op Diagnosis: hx of colon polyps Patient Data Age: 52 Gender: F Height: 1.6 m Weight: 76.5 kg Allergies Allergy/AdvReac Type Severity Reaction Status Date / Time morphine Allergy Intermediate STOMACH Verified 10/01/23 11:12 PAINS aluminum hydroxide Allergy Unknown Hives Verified 10/01/23 11:12 atropine Allergy Unknown Hives Verified 10/01/23 11:12 Barbiturates Allergy Unknown Hives Verified 10/01/23 11:12 hyoscyamine Allergy Unknown Hives Verified 10/01/23 11:12 Sulfa (Sulfonamide Allergy Unknown HIVES, Verified 10/01/23 11:12 Antibiotics) ITCHING ANTICHOLINERGICS,OTHER Allergy Unknown Hives Uncoded 10/01/23 11:12 Home Medications Medication Instructions Recorded Confirmed Type calcium carbonate 600 mg calcium 600 mg PO BID 09/15/23 10/01/23 History (1,500 mg) tablet multivitamin-ferrous 1 tablet PO DAILY 09/15/23 10/01/23 History fumarate-folic acid 18 mg-400 mcg tablet ([facility]rum Women) Patient hx anesthesia problems: none Family hx anesthesia problems: none Results Review: All pre-operative results and documents have been reviewed as part of the pre-operative evaluation. [facility] Past Medical History Medical History (Updated 09/30/23 @ 09:13 by Brando Menendez DO) Abnormal laboratory test result MIGDALIA positive Anxiety Arthritis Chronic back pain Crohn's disease Degenerative disc disease Depression Diverticulosis Fatty liver Fibroids Frequent headaches GERD (gastroesophageal reflux disease) Gout Irritable bowel Melena Mouth sores Panic disorder Rheumatoid arthritis Sleep apnea Ulcer Umbilical hernia Surgical History Surgical History H/O cystoscopy H/O lithotripsy H/O rectocele repair H/O tubal ligation Hx of cholecystectomy Family History Family History Sibling Malignant neoplasm of bone Spina bifida Asthma Mother COPD (chronic obstructive pulmonary disease) Hypertension Father Hepatic cirrhosis Social History Social History Smoking status: Never smoker Second hand tobacco smoke exposure: No Alcohol intake: current Alcohol use details: occasional Substance use: never Substance use type: does not use Living arrangements: with family Occupation/Education: occupation Gender identity (if verbalized by the patient): Female Spiritual care concerns: No Anes - Eval Final PreProcedure Day of Procedure 09/30/23 09:12 Patient weight: overweight Heart: regular rate and rhythm Lungs: clear to auscultation Airway: Mallampati scale class II Neurological: alert and oriented Last oral intake: >/= 8 hours ASA classification: III Emergent: no Anesthetic plan: proceed Anesthesia type and monitoring: general GIVS and standard monitoring Results Review: All pre-operative results and documents have been reviewed as part of the pre-operative evaluation. Informed Consent: The patient's anesthetic plan and its attendant risks and benefits were discussed with the patient/family/POA. Questions were solicited and answers provided to the satisfaction of the patient/family/POA.
[2023-10-01 11:13] VITALS: BP 147/84; PULSE 69; RESP 18; TEMP 36.3; O2SAT 100; BMI 30.7
[2023-10-01] MEDS: LACTATED RINGERS 1,000 ML 150 ML IV CONT (11:23)
--- NOTE | 2023-10-01 11:33 | PM.HPGS ---
History of Present Illness History of Present Illness Consent: Risks, benefits, and alternatives have been discussed and questions answered. Patient agrees to proceed with procedure. Chief complaint: hx of colon polyps Narrative: Kendra Chadwick is a 52 year old female Referred for colon cancer screening. She has a history of polyps. Review of Systems Review of Systems: All systems reviewed & are unremarkable except as noted in HPI and below PMFSH Past Medical History Medical History Abnormal laboratory test result MIGDALIA positive Anxiety Arthritis Chronic back pain Crohn's disease Degenerative disc disease Depression Diverticulosis Fatty liver Fibroids Frequent headaches GERD (gastroesophageal reflux disease) Gout Irritable bowel Melena Mouth sores Panic disorder Rheumatoid arthritis Sleep apnea Ulcer Umbilical hernia Surgical History Surgical History H/O cystoscopy H/O lithotripsy H/O rectocele repair H/O tubal ligation Hx of cholecystectomy Family History Family History Sibling Malignant neoplasm of bone Spina bifida Asthma Mother COPD (chronic obstructive pulmonary disease) Hypertension Father Hepatic cirrhosis Social History Social History Smoking status: Never smoker Second hand tobacco smoke exposure: No Alcohol intake: current Alcohol use details: occasional Substance use: never Substance use type: does not use Living arrangements: with family Occupation/Education: occupation Gender identity (if verbalized by the patient): Female Spiritual care concerns: No Meds Home Medications and Allergies Home Medications Medication Instructions Recorded Confirmed Type calcium carbonate 600 mg calcium 600 mg PO BID 09/15/23 10/01/23 History (1,500 mg) tablet multivitamin-ferrous 1 tablet PO DAILY 09/15/23 10/01/23 History fumarate-folic acid 18 mg-400 mcg tablet ([facility]) Allergies Allergy/AdvReac Type Severity Reaction Status Date / Time morphine Allergy Intermediate STOMACH Verified 10/01/23 11:12 PAINS aluminum hydroxide Allergy Unknown Hives Verified 10/01/23 11:12 atropine Allergy Unknown Hives Verified 10/01/23 11:12 Barbiturates Allergy Unknown Hives Verified 10/01/23 11:12 hyoscyamine Allergy Unknown Hives Verified 10/01/23 11:12 Sulfa (Sulfonamide Allergy Unknown HIVES, Verified 10/01/23 11:12 Antibiotics) ITCHING ANTICHOLINERGICS,OTHER Allergy Unknown Hives Uncoded 10/01/23 11:12 Vital Signs Vital Signs - 24 hr 10/01/23 11:13 Temperature 36.3 C L Pulse Rate 69 Respiratory Rate 18 Blood Pressure 147/84 H Pulse Oximetry 100 Oxygen Delivery Room Air Exam Const: General: alert Orientation/consciousness: patient oriented x3 Resp: Auscultation: clear to auscultation bilaterally Cardio: Rhythm: regular rhythm GI: GI Palp: Yes Soft to palpation and No Tenderness to palpation present (GI) Neuro: General: patient oriented x3 Assessment and Plan Assessment and plan (1) Colon cancer screening: Code(s): Z12.11 - Encounter for screening for malignant neoplasm of colon Status: Acute Assessment and Plan: Colonoscopy with possible biopsy or polypectomy or cautery or injection of substances.
[2023-10-01 12:09] VITALS: BP 116/70; PULSE 78; RESP 13; O2SAT 98
[2023-10-01 12:19] VITALS: BP 123/73; PULSE 71; RESP 16; O2SAT 100
[2023-10-01 12:29] VITALS: BP 125/80; PULSE 69; RESP 18; O2SAT 100
== END 2023-10-01 12:40 | disposition home or self-care (01) ==
PROVIDERS: PCP Nurse Practitioner; Visit Provider Internal Medicine Gastroenterology
PROC: 0DJD8ZZ Inspection of Lower Intestinal Tract, Via Natural or Artificial Opening Endoscopic (ICD-10-PCS; CPT 45378; principal; 2023-10-01 12:30)
DX: Z12.11 Encounter for screening for malignant neoplasm of colon (principal); K57.30 Diverticulosis of large intestine without perforation or abscess without bleeding; K64.8 Other hemorrhoids; Z86.010 Personal history of colon polyps
CPT/HCPCS: 45378; J2704; J7120

== ENCOUNTER 2024-05-12 08:45 | Outpatient (CLI) | payer BC, SELFPAY ==
--- NOTE | ~2024-05-12 | XR_ITS ---
EXAMINATION: XR abdomen/kub 1V DATE: 05/12/2024 09:09 INDICATION: Right upper quadrant abdominal pain. TECHNIQUE: A supine view of the abdomen was obtained. COMPARISON: Abdomen radiographs 11/30/2022, CT abdomen and pelvis 12/01/2022 FINDINGS: There are no dilated loops of bowel. There are approximately 4 stones in right kidney measu ring up to 4 mm. There are at least 5 stones in left kidney measuring up to 10 mm. Surgical clips in the right upper quadrant are likely from cholecystectomy. There are phleboliths in the pelvis. IMPRESSION: 1. Bilateral kidney stones. Reviewed, dictated and finalized at location A. IMPRESSION: 1. Bilateral kidney stones.
== END 2024-05-12 08:46 ==
PROVIDERS: PCP Nurse Practitioner
DX: R10.11 Right upper quadrant pain (principal); N20.0 Calculus of kidney
CPT/HCPCS: 74018

== ENCOUNTER 2024-07-25 15:29 | Outpatient (CLI) | payer BC, SELFPAY ==
--- NOTE | ~2024-07-25 | MM_ITS ---
EXAMINATION: MM screening [facility] BI w [place] HISTORY: Screening TECHNIQUE: Craniocaudal and mediolateral oblique 3-D tomosynthesis images were obtained and synthetic 2-D images were generated. CAD analysis was submitted and interpreted. COMPARISON: Comparison to multiple prior studies sequentially, with oldest reviewed study dated 04/23. BREAST PARENCHYMAL COMPOSITION: Not dense: There are scattered areas of fibroglandular density. FINDINGS: There is an enlarging mass in the upper outer quadrant of the right breast, anterior third. The left breast is stable without evidence for malignancy. IMPRESSION: 1. Enlarging right breast mass. 2. Additional mammographic views and possible breast ultrasound are recommended. BI-RADS Category 0: Incomplete: Needs additional imaging evaluation. Reviewed, dictated and finalized at location B. IMPRESSION: 1. Enlarging right breast mass. 2. Additional mammographic views and possible breast ultrasound are recommended . BI-RADS Category 0: Incomplete: Needs additional imaging evaluation.
== END 2024-07-25 15:30 | disposition home or self-care (01) ==
PROVIDERS: PCP Nurse Practitioner; Visit Provider Obstetrics & Gynecology
DX: Z12.31 Encounter for screening mammogram for malignant neoplasm of breast (principal); R92.8 Other abnormal and inconclusive findings on diagnostic imaging of breast
CPT/HCPCS: 77063; 77067

== ENCOUNTER 2024-09-01 08:21 | Outpatient (CLI) | payer BC, SELFPAY ==
--- NOTE | ~2024-09-01 | MMUS_ITS ---
EXAMINATION: MM diagnostic [facility] RT w [place], US breast RT limited HISTORY: Upper, outer right subareolar breast mass TECHNIQUE: Additional 3-D tomosynthesis images of the right breast were performed and synthetic 2-D i mages were generated. CAD analysis was submitted and interpreted. High resolution limited right breas t ultrasound was performed. COMPARISON: 08/16/2023, 07/05/2023, 05/07/2022 BREAST PARENCHYMAL COMPOSITION:Not Dense. There are scattered areas of fibroglandular density. FINDINGS: MAMMOGRAPHIC FINDINGS: Spot compression views confirm a 4 mm mass at the upper, outer right subareolar region. ULTRASOUND: There is a 4 mm cyst at the right breast 11:00 position, 3 cm from the nipple, which corresponds with the mammographic finding. IMPRESSION: No evidence for malignancy. 4 mm right breast cyst, as detailed above, minimally increased in size from prior exam. BI-RADS Category 2: Benign finding(s). Reviewed, dictated and finalized at [facility]. STANT CORPORATE CONTROLLER IMPRESSION: No evidence for malignancy. 4 mm right breast cyst, as detailed above, minimally increased in size from jose or exam. BI-RADS Category 2: Benign finding(s).
== END 2024-09-01 08:22 | disposition home or self-care (01) ==
LOC: MICIMG 08:23
PROVIDERS: PCP Nurse Practitioner; Visit Provider Obstetrics & Gynecology
DX: R92.8 Other abnormal and inconclusive findings on diagnostic imaging of breast (principal); N60.01 Solitary cyst of right breast
CPT/HCPCS: 76642; 77061; 77065; G0279

== ENCOUNTER 2025-10-09 14:17 | Outpatient (CLI) | payer BC, SELFPAY ==
--- NOTE | ~2025-10-09 | US_ITS ---
EXAMINATION: US pelvic complete w TV INDICATION: Postmenopausal bleeding Comparison:No prior studies for comparison. TECHNIQUE: Multiple transabdominal and endovaginal sonographic images of the pelvis performed. FINDINGS: The uterus measures 7 x 3.6 x 5.1 cm. The endometrial complex measures 10 mm. The ovaries are not visualized, likely atrophic. There is no free fluid in the pelvis. There are no abnormal masses seen on either side. IMPRESSION: 1. Thickened endomtrial complex. The differential diagnosis includes endometrial hyperplasia, polyp and carcinoma. Biopsy is recommended. Reviewed, dictated and finalized at location O. ET SPRINKLER IMPRESSION: 1. Thickened endomtrial complex. The differential diagnosis includes endometria l hyperplasia, polyp and carcinoma. Biopsy is recommended.
== END 2025-10-09 14:18 | disposition home or self-care (01) ==
LOC: MICIMG 14:19
PROVIDERS: PCP Nurse Practitioner; Visit Provider Obstetrics & Gynecology
DX: R93.89 Abnormal findings on diagnostic imaging of other specified body structures (principal)
CPT/HCPCS: 76830; 76856